=== PATIENT | female | born 2005 | race Caucasian/White ===

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

== ENCOUNTER 2023-11-18 18:37 | Emergency (ER) | payer BC ==
[~2023-11-18] VITALS: Ht 154.9 cm; Wt 54.9 kg
[~2023-11-18 18:37] MED LIST: CEFU250T85 PO
[2023-11-18 18:44] VITALS: BP_SYST 141; PULSE 105; RESP 16; TEMP 98; O2SAT 100
[2023-11-18] MEDS: NACL 0.9% 1,000 ML IV ONE ×2 (18:54→22:32)
[2023-11-18 19:00] LABS: EOSINOPHILS # (AUTO) 0.1 K/uL (0.0-0.4); EOSINOPHILS % (AUTO) 0.4 % (0.0-4.0); HEMATOCRIT 38.8 % (36-48); HEMOGLOBIN 13.2 g/dL (12.0-16.0); LYMPHOCYTES # (AUTO) 1.2 K/uL (1.0-5.5); LYMPHOCYTES % (AUTO) 6.3 % (20.5-51.5); MEAN CORPUSCULAR HEMOGLOBIN 33 pg (27-31); MEAN CORPUSCULAR HGB CONC 34 % (32-36); MEAN CORPUSCULAR VOLUME 96 fL (79.0-98.0); MONOCYTES % (AUTO) 5.2 % (1.7-9.3); NEUTROPHILS # (AUTO) 16.7 K/uL (1.8-7.7); NEUTROPHILS % (AUTO) 88.1 % (40.0-70.0); PLATELET COUNT (AUTO) 202 K/uL (130-430); RED BLOOD CELL COUNT(AUTO) 4.06 MIL/uL (4.2-6.2); WHITE BLOOD COUNT (AUTO) 18.9 K/uL (4.5-11.0)
[2023-11-18 19:11] LABS: CALCIUM 9.1 mg/dL (8.4-11.0); CREATININE 0.75 mg/dL (0.55-1.30); POTASSIUM 3.9 mmol/L (3.5-5.1)
[2023-11-18] MEDS: MECLIZINE HCL 25 MG TABLET (ANITVERT) PO ONE (19:12)
[2023-11-18 19:50] LABS: BILIRUBIN,URINE NEGATIVE (NEGATIVE); BLOOD, URINE NEGATIVE (NEGATIVE); CLARITY/URINE CLEAR (CLEAR); COLOR,URINE YELLOW (YELLOW); GLUCOSE,URINE NEGATIVE (NEGATIVE); KETONES,URINE TRACE (NEGATIVE); LEUKOCYTE ESTERASE ,URINE NEGATIVE (NEGATIVE); NITRITE, URINE NEGATIVE (NEGATIVE); PH,URINE 6.5 (5.0-8.0); PROTEIN URINE 2+ (NEGATIVE); UROBILINOGEN,URINE 0.2 (0.2-1.0)
[2023-11-18 20:00] LABS: BACTERIA,URINE FEW /HPF (None Seen); MUCUS,URINE 1+ /LPF (None Seen); RBC,URINE NONE SEEN /HPF (0-3); WBC,URINE 0-3 /HPF (0-3)
[2023-11-18] MEDS ORDERED: KETOROLAC TROMETHAMINE 30 MG VIAL IM ONE (20:45)
[2023-11-18 22:52] VITALS: BP_SYST 116; PULSE 85; RESP 16; TEMP 98; O2SAT 99
== END 2023-11-18 22:54 | disposition home or self-care (01) ==
LOC: SED 18:37
DX: B34.9 Viral infection, unspecified (principal); R55 Syncope and collapse; R53.1 Weakness; Z79.899 Other long term (current) drug therapy
CPT/HCPCS: 99285; 74176; 96360; 71045; 80048; 81001; 85025; 85379; 87040; 36415; 93005; 81025; 83605; J7030; 81000; 81015; J8597